=== PATIENT | female | born 1970 | race Caucasian/White ===

== ENCOUNTER 2019-01-29 13:03 | Emergency (ER) | payer OTHER ==
[~2019-01-29] VITALS: Ht 152.4 cm; Wt 94.7 kg
[2019-01-29 13:10] VITALS: Ht 152.4 cm; Wt 94.7 kg
[2019-01-29] MEDS ORDERED: KETOROLAC 30 MG INJ IM STA (20:02)
--- NOTE | 2019-01-29 20:18 | ERD ---
ER Documentation Chief Complaint Chief Complaint c/o right arm numbness x1 month, right facial numbness x1 day. NIHSS 0 HPI 49-year-old woman complains of one-month right upper extremity paresthesias, 2 weeks right lower extremity paresthesias, and about 2 days of paresthesias around the right face and mouth. She has a history of obesity and hypertension and states she has been using her medications as directed. She went to medical clinic today that told her she may be experiencing a stroke and referred her to the emergency department. Patient has had no headache or blurry vision, no weakness in her arms or legs, no slurred speech, no difficulty ambulating and no difficulty holding or grasping objects. She denies chest pain or shortness of breath, no fevers or chills. She does admit to having right lateral neck pain and shoulder stiffness from time to time and feels muscle spasms to the upper right and bilateral lower back ROS All systems reviewed and are negative except as per history of present illness. Medications Home Meds Active Scripts Cyclobenzaprine Hcl* (Cyclobenzaprine Hcl*) 10 Mg Tablet, 10 MG PO TID PRN for MUSCLE SPASMS, #15 TAB Prov:HERI PARSONS MD 01/29/19 Ibuprofen* (Motrin*) 600 Mg Tab, 600 MG PO Q8 PRN for PAIN AND/OR INFLAMMATION, #30 TAB Prov:HERI PARSONS MD 01/29/19 Reported Medications Gabapentin* (Gabapentin*) 100 Mg Capsule, 100 MG PO QHS, #90 CAP 01/29/19 Discontinued Reported Medications [none] No Conflict Check 08/01/10 Allergies Allergies: Coded Allergies: No Known Allergy (Verified , 01/29/19) PMhx/Soc Obesity, hypertension History of Surgery: No Anesthesia Reaction: No Hx Neurological Disorder: No Hx Respiratory Disorders: No Hx Cardiac Disorders: No Hx Psychiatric Problems: No Hx Miscellaneous Medical Probl: No Hx Alcohol Use: No Hx Substance Use: No Hx Tobacco Use: No FmHx Family History: No diabetes Physical Exam Vitals Vital Signs Date Temp Pulse Resp B/P (MAP) Pulse Ox O2 O2 Flow FiO2 Time Delivery Rate 01/29/19 98.7 78 18 119/54 100 Room Air 21:21 (75) 01/29/19 98.8 65 20 143/68 100 Room Air 19:45 (93) 01/29/19 98.8 76 18 173/81 99 13:10 (111) Physical Exam Const: No acute distress, afebrile Head: Atraumatic Eyes: Normal Conjunctiva ENT: Normal External Ears, Nose and Mouth. Neck: Full range of motion. No meningismus. Resp: Clear to auscultation bilaterally Cardio: Regular rate and rhythm, no murmurs Abd: Soft, non tender, non distended. Skin: No petechiae or rashes Back: No midline or flank tenderness Ext: No cyanosis, or edema Neur: Awake and alert x3, no focal deficits or facial asymmetry, pupils equal round reactive to light, strength 5 out of 5 in the upper and lower extremities bilaterally Psych: Normal Mood and Affect Results 24 hrs Current Medications Medications Dose Sig/Chris Start Time Status Last (Trade) Ordered Route PRN Stop Time Admin Dose Reason Admin Ketorolac 30 mg ONCE STAT 01/29/19 DC Tromethamine IM 20:02 (Toradol) 01/29/19 20:28 Alprazolam 0.5 mg ONCE ONCE 01/29/19 DC 01/29/19 (Xanax) PO 20:30 20:39 01/29/19 20:31 Clonidine 0.1 mg ONCE ONCE 01/29/19 DC (Catapres) PO 20:30 01/29/19 20:31 Ketorolac 30 mg ONCE STAT 01/29/19 DC 01/29/19 Tromethamine IV 20:26 20:39 (Toradol) 01/29/19 20:28 Procedures/MDM Patient placed on rn cardiac rehab rhythm strip revealed a sinus rhythm at about 80 bpm. Patient was afebrile. I administered Toradol 30 mg IM x1 and alprazolam 0.[address] scan of the brain was negative for acute bleed mass or shift Patient felt much better neurologic exam was repeated by me prior to discharge and remained normal. Her blood pressure improved as well Patient may be experiencing cervical radiculopathy as well as sciatica and there are other more benign causes of paresthesias. I do not suspect stroke or significant/serious peripheral neuropathy. I recommend that she follow-up with PMD should her symptoms continue although did discharge her with a prescription for NSAIDs and cyclobenzaprine. Differential diagnoses considered, included but not limited to acute coronary syndrome, pulmonary embolism, aortic dissection, abdominal aortic aneurysm, sepsis, stroke, meningitis, encephalitis, pneumonia, appendicitis, cholecystitis, bowel obstruction, pyelonephritis, nephrolithiasis, cystitis, as well as metabolic, hematologic, and electrolyte abnormalities. As well as abscess, cellulitis, fractures, and dislocations. Patient feels much better at this time, and vital signs are normal, symptoms have improved. I did give strict instructions to return to the ED if symptoms continue or worsen, patient will otherwise follow-up with primary care physician. Patient understood instructions and agreed to plan. Disclaimer: Inadvertent spelling and grammatical errors are likely due to EHR/dictation software use and do not reflect on the overall quality of patient care. Also, please note that the electronic time recorded on this note does not necessarily reflect the actual time of the patient encounter. Departure Diagnosis: Primary Impression: Hypertension Hypertension type: essential hypertension Qualified Codes: I10 - Essential (primary) hypertension Additional Impression: Paresthesias Condition: Good HERI PARSONS MD Jan 29, 2019 20:18
[2019-01-29] MEDS ORDERED: KETOROLAC 30 MG INJ IV STA (20:26)
[2019-01-29] MEDS ORDERED: ALPRAZOLAM 0.25 MG TAB PO ONE (20:30)
[2019-01-29] MEDS ORDERED: IBUP-1542 PO (21:00)
[2019-01-29] MEDS ORDERED: CYCL10TA7 PO (21:00)
[2019-01-29] MEDS ORDERED: GABA100C14 PO (21:05)
[2019-01-29 21:21] VITALS: BP 119/54; PULSE 78; RESP 18
== END 2019-01-29 21:28 | disposition home or self-care (01) ==
LOC: E/R 13:03
DX: I10 Essential (primary) hypertension (principal); R20.2 Paresthesia of skin; E66.9 Obesity, unspecified; Z68.41 Body mass index [BMI] 40.0-44.9, adult
CPT/HCPCS: 70450; 96374; J1885; Z7502; Z7610